=== PATIENT | female | born 1940 | race Caucasian/White ===

== ENCOUNTER 2017-05-01 10:14 | Inpatient (IN) | payer OTHER ==
[2017-05-01] MEDS: SOD CHLORIDE 0.9% 1,000 ML IV (11:22)
[2017-05-01 12:14] LABS: ADD MAN DIFF? NO
[2017-05-01 12:19] LABS: BASOPHILS % 0.5 % (0.0-2.0); EOSINOPHILS # 0.1 10^3/ul (0.0-0.5); EOSINOPHILS % 1.5 % (0.0-7.0); HEMATOCRIT 28.3 % (37.0-47.0); HEMOGLOBIN 8.6 g/dl (12.0-16.0); LYMPHOCYTES # 1.1 10^3/ul (0.8-2.9); LYMPHOCYTES % 27.7 % (15.0-51.0); MEAN CORPUSCULAR HEMOGLOBIN 26.5 pg (29.0-33.0); MEAN CORPUSCULAR HGB CONC 30.4 g/dl (32.0-37.0); MEAN CORPUSCULAR VOLUME 87.3 fl (82.0-101.0); MEAN PLATELET VOLUME 10.4 fl (7.4-10.4); MONOCYTE # 0.4 10^3/ul (0.3-0.9); MONOCYTES % 9.4 % (0.0-11.0); NEUTROPHIL # 2.4 10^3/ul (1.6-7.5); NEUTROPHILS % 60.6 % (39.0-77.0); PLATELET COUNT 184 10^3/UL (140-415); RED BLOOD COUNT 3.24 10^6/ul (4.20-5.40); RED CELL DISTRIBUTION WIDTH 20.3 % (11.5-14.5)
[2017-05-01 12:19] LABS: WHITE BLOOD COUNT 3.9 10^3/ul (4.8-10.8)
[2017-05-01 12:42] LABS: INR 1.05; PROTIME 13.8 Sec (11.9-14.9); PT RATIO 1.1
[2017-05-01 12:43] LABS: PARTIAL THROMBOPLASTIN TIME 31.1 Sec (25.0-35.0)
[2017-05-01 12:46] LABS: ALBUMIN/GLOBULIN RATIO 1.17; ANION GAP 13 (8-16)
[2017-05-01 12:56] LABS: ALANINE AMINOTRANSFERASE 54 IU/L (13-69); ALBUMIN 3.4 g/dl (3.3-4.9); ALKALINE PHOSPHATASE 121 IU/L (42-121); ASPARTATE AMINO TRANSFERASE 43 IU/L (15-46); BLOOD UREA NITROGEN 25 mg/dl (7-20); CALCIUM 8.9 mg/dl (8.4-10.2); CARBON DIOXIDE 28 mmol/L (21-31); CHLORIDE 106 mmol/L (97-110); CK INDEX 2.5; CK-MB 1.29 ng/ml (0.0-2.4); CREATINE KINASE 51 IU/L (23-200); CREATININE 1.14 mg/dl (0.44-1.00); GLUCOSE 94 mg/dl (70-220); POTASSIUM 4.4 mmol/L (3.5-5.1); SODIUM 143 mmol/L (135-144); TOTAL PROTEIN 6.3 g/dl (6.1-8.1)
[2017-05-01 13:27] LABS: ADD UMIC NO; UR ASCORBIC ACID NEGATIVE (NEGATIVE); UR BACTERIA FEW /HPF (NONE SEEN); UR BILIRUBIN (Dip) NEGATIVE (NEGATIVE); UR BLOOD (Dip) NEGATIVE (NEGATIVE); UR CLARITY SLIGHTLY CLOUDY (CLEAR); UR COLOR YELLOW (YELLOW); UR GLUCOSE (Dip) NEGATIVE (NEGATIVE); UR KETONES (Dip) NEGATIVE (NEGATIVE); UR LEUKOCYTE ESTERASE (Dip) NEGATIVE Leu/ul (NEGATIVE); UR NITRITE (Dip) NEGATIVE (NEGATIVE); UR RBC 0 /HPF (0-5); UR SPECIFIC GRAVITY (Dip) 1.011 (1.003-1.030); UR TOTAL PROTEIN (Dip) NEGATIVE (NEGATIVE); UR UROBILINOGEN (Dip) NEGATIVE (NEGATIVE); UR WBC 1 /HPF (0-5)
[2017-05-01 13:52] LABS: CANNABINOIDS Negative (NEGATIVE)
[2017-05-01 13:55] LABS: FREE THYROXINE INDEX (Calc) 2.67 ug/ml (0.65-3.89); T3 UPTAKE 40.4 % (23.5-40.5); T4 (THYROXINE) 6.6 ug/dl (5.5-11.0)
[2017-05-01] MEDS ORDERED: ACETAMINOPHEN 325 MG TAB PO (14:00)
[2017-05-01] MEDS ORDERED: ONDANSETRON 4 MG INJ IV ×2 (14:00→17:30)
[2017-05-01 14:07] LABS: AMPHETAMINE/METHAMPHETAMINE Negative (NEGATIVE); BARBITURATES Negative (NEGATIVE); BENZODIAZEPINES Negative (NEGATIVE); COCAINE Negative (NEGATIVE); OPIATES Positive (NEGATIVE)
[2017-05-01 14:34] LABS: B-TYPE NATRIURETIC PEPTIDE 3280 PG/ML (0-450)
[2017-05-01 15:00] LABS: ETHANOL < 10.0 mg/dl
[2017-05-01] MEDS ORDERED: GLUCOSE GEL 15 GRAM TUBE PO ×2 (18:00)
[2017-05-01] MEDS ORDERED: GLUCAGON 1 MG INJ IM (18:00)
[2017-05-01] MEDS ORDERED: DEXTROSE 50% 50 ML SYRINGE IV ×2 (18:00)
[2017-05-01] MEDS: INSULIN ASPART [NOVOLOG] 3 ML PEN SC ×2 (18:00→20:38)
[2017-05-01] MEDS ORDERED: GLUCOSE GEL 15 GRAM TUBE BUCCAL (18:00)
[2017-05-01] MEDS: FUROSEMIDE 40 MG INJ IV (18:40)
[2017-05-01] MEDS: DEXTROSE 5%-0.45% NACL 1,000 ML IV (18:41)
[2017-05-01 18:43] LABS: CREATINE KINASE 50 IU/L (23-200)
[2017-05-01 18:56] LABS: CK INDEX 2.4; CK-MB 1.18 ng/ml (0.0-2.4); TROPONIN-I 0.072 ng/ml (0.00-0.12)
[2017-05-01] MEDS: FAMOTIDINE 20 MG INJ IV (20:38)
[2017-05-01] MEDS: LORAZEPAM 2 MG INJ IV (21:26)
[2017-05-02 00:36] LABS: CREATINE KINASE 43 IU/L (23-200)
[2017-05-02 00:48] LABS: CK INDEX 2.5; CK-MB 1.09 ng/ml (0.0-2.4); TROPONIN-I 0.072 ng/ml (0.00-0.12)
[2017-05-02] MEDS: ACCU-CHEK XX (01:28)
[2017-05-02] MEDS: DEXTROSE 5%-0.45% NACL 1,000 ML IV ×2 (06:50→08:31)
[2017-05-02 08:12] LABS: ADD MAN DIFF? NO
[2017-05-02 08:15] LABS: BASOPHILS % 0.6 % (0.0-2.0); EOSINOPHILS # 0.1 10^3/ul (0.0-0.5); EOSINOPHILS % 2.2 % (0.0-7.0); HEMATOCRIT 27.3 % (37.0-47.0); HEMOGLOBIN 8.5 g/dl (12.0-16.0); LYMPHOCYTES # 0.8 10^3/ul (0.8-2.9); LYMPHOCYTES % 21.7 % (15.0-51.0); MEAN CORPUSCULAR HEMOGLOBIN 26.5 pg (29.0-33.0); MEAN CORPUSCULAR HGB CONC 31.1 g/dl (32.0-37.0); MEAN PLATELET VOLUME 10.8 fl (7.4-10.4); MONOCYTE # 0.5 10^3/ul (0.3-0.9); MONOCYTES % 13.4 % (0.0-11.0); NEUTROPHIL # 2.2 10^3/ul (1.6-7.5); NEUTROPHILS % 61.5 % (39.0-77.0); PLATELET COUNT 200 10^3/UL (140-415); RED BLOOD COUNT 3.21 10^6/ul (4.20-5.40); RED CELL DISTRIBUTION WIDTH 19.5 % (11.5-14.5)
[2017-05-02 08:15] LABS: WHITE BLOOD COUNT 3.6 10^3/ul (4.8-10.8)
[2017-05-02] MEDS: INSULIN ASPART [NOVOLOG] 3 ML PEN SC ×4 (08:29→21:00)
[2017-05-02 08:42] LABS: ALANINE AMINOTRANSFERASE 62 IU/L (13-69); ALBUMIN 3.3 g/dl (3.3-4.9); ALBUMIN/GLOBULIN RATIO 1.13; ALKALINE PHOSPHATASE 127 IU/L (42-121); ANION GAP 12 (8-16); ASPARTATE AMINO TRANSFERASE 41 IU/L (15-46); BILIRUBIN,INDIRECT 0.1 mg/dl (0-1.1); BILIRUBIN,TOTAL 0.1 mg/dl (0.2-1.3); BLOOD UREA NITROGEN 14 mg/dl (7-20); CALCIUM 8.5 mg/dl (8.4-10.2); CARBON DIOXIDE 32 mmol/L (21-31); CHLORIDE 103 mmol/L (97-110); CHOL/HDL RATIO 6.4 RATIO; CHOLESTEROL 181 mg/dl (100-200); CREATININE 0.79 mg/dl (0.44-1.00); GLUCOSE 121 mg/dl (70-220); HDL CHOLESTEROL 28 mg/dl (33-92); LDL CHOLESTEROL,CALCULATED 113 mg/dl; MAGNESIUM 1.4 mg/dl (1.7-2.5); POTASSIUM 3.3 mmol/L (3.5-5.1); SODIUM 144 mmol/L (135-144); TOTAL PROTEIN 6.2 g/dl (6.1-8.1); TRIGLYCERIDES 202 mg/dl (0-149)
[2017-05-02] MEDS: ASPIRIN 81 MG TAB PO (09:00)
[2017-05-02 09:06] LABS: THYROID STIMULATING HORMONE 0.662 MIU/L (0.465-4.680)
[2017-05-02] MEDS: FAMOTIDINE 20 MG INJ IV ×2 (09:12→20:59)
[2017-05-02] MEDS: ENOXAPARIN 30 MG/0.3 ML SYG SC (09:15)
[2017-05-02] MEDS: hydrALAzine 20 MG INJ IV ×3 (12:30→20:59)
[2017-05-02] MEDS ORDERED: POTASSIUM CHLORIDE (SR) 20 MEQ TAB PO (13:40)
[2017-05-02] MEDS: MAGNESIUM SULFATE 2 GM/50 ML 50 ML IVPB (14:25)
[2017-05-02] MEDS: POTASSIUM CHLORIDE 100 ML IVPB (16:13)
[2017-05-03] MEDS: ACCU-CHEK XX (03:00)
[2017-05-03] MEDS: hydrALAzine 20 MG INJ IV ×3 (03:48→20:16)
[2017-05-03 08:06] LABS: ADD MAN DIFF? NO
[2017-05-03 08:12] LABS: WHITE BLOOD COUNT 4.8 10^3/ul (4.8-10.8)
[2017-05-03 08:12] LABS: BASOPHILS % 0.4 % (0.0-2.0); EOSINOPHILS # 0.1 10^3/ul (0.0-0.5); EOSINOPHILS % 1.2 % (0.0-7.0); HEMATOCRIT 29.8 % (37.0-47.0); HEMOGLOBIN 9.4 g/dl (12.0-16.0); LYMPHOCYTES # 0.6 10^3/ul (0.8-2.9); LYMPHOCYTES % 12.4 % (15.0-51.0); MEAN CORPUSCULAR HEMOGLOBIN 26.3 pg (29.0-33.0); MEAN CORPUSCULAR HGB CONC 31.5 g/dl (32.0-37.0); MEAN CORPUSCULAR VOLUME 83.5 fl (82.0-101.0); MEAN PLATELET VOLUME 10.9 fl (7.4-10.4); MONOCYTE # 0.6 10^3/ul (0.3-0.9); MONOCYTES % 11.4 % (0.0-11.0); NEUTROPHIL # 3.6 10^3/ul (1.6-7.5); NEUTROPHILS % 74.4 % (39.0-77.0); PLATELET COUNT 225 10^3/UL (140-415); RED BLOOD COUNT 3.57 10^6/ul (4.20-5.40)
[2017-05-03] MEDS: ASPIRIN 81 MG TAB PO (08:13)
[2017-05-03 08:56] LABS: IRON 40 ug/dl (35-150)
[2017-05-03 08:57] LABS: ALANINE AMINOTRANSFERASE 54 IU/L (13-69); ALBUMIN 3.5 g/dl (3.3-4.9); ALBUMIN/GLOBULIN RATIO 1.25; ALKALINE PHOSPHATASE 129 IU/L (42-121); ANION GAP 15 (8-16); ASPARTATE AMINO TRANSFERASE 32 IU/L (15-46); BILIRUBIN,INDIRECT 0.1 mg/dl (0-1.1); BILIRUBIN,TOTAL 0.1 mg/dl (0.2-1.3); BLOOD UREA NITROGEN 7 mg/dl (7-20); CARBON DIOXIDE 29 mmol/L (21-31); CHLORIDE 102 mmol/L (97-110); CREATININE 0.63 mg/dl (0.44-1.00); GLUCOSE 173 mg/dl (70-220); POTASSIUM 3.6 mmol/L (3.5-5.1); SODIUM 142 mmol/L (135-144); TOTAL PROTEIN 6.3 g/dl (6.1-8.1)
[2017-05-03 09:01] LABS: FERRITIN 32.7 ng/ml (11.1-264.0)
[2017-05-03 09:05] LABS: % IRON SATURATION 12 % SAT (22-52); TOTAL IRON BINDING CAPACITY 340 ug/dl (241-421)
[2017-05-03] MEDS: FAMOTIDINE 20 MG INJ IV (09:08)
[2017-05-03] MEDS: ENOXAPARIN 30 MG/0.3 ML SYG SC (09:10)
[2017-05-03] MEDS: INSULIN ASPART [NOVOLOG] 3 ML PEN SC ×4 (09:11→20:29)
[2017-05-03] MEDS: DEXTROSE 5%-0.45% NACL 1,000 ML IV (09:11)
[2017-05-03] MEDS: hydrALAzine 20 MG INJ IM ×3 (09:30→22:51)
[2017-05-03] MEDS: CLONIDINE 0.1 MG/24 HR PATCH TRANSDERM (11:30)
[2017-05-03] MEDS ORDERED: FUROSEMIDE 20 MG INJ (17:02)
[2017-05-03] MEDS: FUROSEMIDE 20 MG INJ IV (17:05)
[2017-05-03] MEDS: SOD FERRIC GLUC COMPLX 125 MG in SOD CHLORIDE 0.9% 100 ML IVPB (17:05)
[2017-05-04] MEDS: ACCU-CHEK XX (02:00)
[2017-05-04] MEDS: hydrALAzine 20 MG INJ IM (06:15)
[2017-05-04] MEDS: INFLUENZA VIRUS VACCINE 0.5 ML (DISPENSING) IM* (08:45)
[2017-05-04] MEDS: ASPIRIN 81 MG TAB PO (08:45)
[2017-05-04] MEDS: INSULIN ASPART [NOVOLOG] 3 ML PEN SC ×4 (08:45→20:45)
[2017-05-04] MEDS: ENOXAPARIN 30 MG/0.3 ML SYG SC (09:00)
[2017-05-04 10:43] LABS: ABNORMAL IP MESSAGE 1; ADD MAN DIFF? NO; BASOPHILS % 0.4 % (0.0-2.0); EOSINOPHILS % 0.8 % (0.0-7.0); HEMATOCRIT 32.5 % (37.0-47.0); HEMOGLOBIN 10.4 g/dl (12.0-16.0); LYMPHOCYTES # 0.6 10^3/ul (0.8-2.9); LYMPHOCYTES % 11.9 % (15.0-51.0); MEAN CORPUSCULAR HEMOGLOBIN 26.2 pg (29.0-33.0); MEAN CORPUSCULAR VOLUME 81.9 fl (82.0-101.0); MEAN PLATELET VOLUME 10.7 fl (7.4-10.4); MONOCYTE # 0.4 10^3/ul (0.3-0.9); MONOCYTES % 8.7 % (0.0-11.0); NEUTROPHIL # 3.9 10^3/ul (1.6-7.5); NEUTROPHILS % 77.8 % (39.0-77.0); PLATELET COUNT 248 10^3/UL (140-415); RED BLOOD COUNT 3.97 10^6/ul (4.20-5.40); RED CELL DISTRIBUTION WIDTH 18.7 % (11.5-14.5)
[2017-05-04 10:46] LABS: POSITIVE DIFF @See below
[2017-05-04 11:10] LABS: ALBUMIN 3.8 g/dl (3.3-4.9); ALBUMIN/GLOBULIN RATIO 1.22; ALKALINE PHOSPHATASE 128 IU/L (42-121); ANION GAP 14 (8-16); ASPARTATE AMINO TRANSFERASE 28 IU/L (15-46); BILIRUBIN,INDIRECT 0.2 mg/dl (0-1.1); BILIRUBIN,TOTAL 0.2 mg/dl (0.2-1.3); BLOOD UREA NITROGEN 11 mg/dl (7-20); CALCIUM 8.9 mg/dl (8.4-10.2); CARBON DIOXIDE 31 mmol/L (21-31); CHLORIDE 100 mmol/L (97-110); CREATININE 0.68 mg/dl (0.44-1.00); GLUCOSE 159 mg/dl (70-220); POTASSIUM 3.4 mmol/L (3.5-5.1); SODIUM 142 mmol/L (135-144); TOTAL PROTEIN 6.9 g/dl (6.1-8.1)
[2017-05-04 11:27] LABS: ALANINE AMINOTRANSFERASE 39 IU/L (13-69)
[2017-05-04] MEDS ORDERED: PENDING SANTYL ORDER FOR WOUND CARE XX (12:00)
[2017-05-04] MEDS: POTASSIUM CHLORIDE 50 ML IVPB ×2 (12:30→17:33)
[2017-05-04] MEDS: ASPIRIN (EC) 81 MG TAB PO (13:05)
[2017-05-04] MEDS: SOD CHLORIDE 0.9% 100 ML (16:25)
[2017-05-04] MEDS: IOHEXOL 100 ML (16:25)
[2017-05-04] MEDS: SOD FERRIC GLUC COMPLX 125 MG in SOD CHLORIDE 0.9% 100 ML IVPB (17:00)
[2017-05-04] MEDS: hydrALAzine 20 MG INJ IV (17:35)
[2017-05-04] MEDS: ACETAMINOPHEN 325 MG TAB PO (17:57)
[2017-05-04] MEDS: ATORVASTATIN 80 MG TAB PO (20:46)
[2017-05-05] MEDS: ACCU-CHEK XX ×2 (02:00→22:05)
[2017-05-05] MEDS: hydrALAzine 20 MG INJ IV ×2 (07:43→16:37)
[2017-05-05] MEDS: INSULIN ASPART [NOVOLOG] 3 ML PEN SC ×4 (07:54→20:09)
[2017-05-05] MEDS: PANTOPRAZOLE (EC) 40 MG TAB PO (07:58)
[2017-05-05] MEDS: LEVOTHYROXINE 88 MCG TAB PO (07:58)
[2017-05-05] MEDS: METOPROLOL 25 MG TAB PO ×3 (08:07→20:08)
[2017-05-05] MEDS: CLOPIDOGREL 75 MG TAB PO (08:07)
[2017-05-05 08:15] LABS: ADD MAN DIFF? NO
[2017-05-05 08:17] LABS: BASOPHILS % 0.6 % (0.0-2.0); EOSINOPHILS # 0.1 10^3/ul (0.0-0.5); EOSINOPHILS % 1.3 % (0.0-7.0); HEMATOCRIT 34.5 % (37.0-47.0); HEMOGLOBIN 11.1 g/dl (12.0-16.0); LYMPHOCYTES # 0.8 10^3/ul (0.8-2.9); LYMPHOCYTES % 16.7 % (15.0-51.0); MEAN CORPUSCULAR HEMOGLOBIN 26.4 pg (29.0-33.0); MEAN CORPUSCULAR HGB CONC 32.2 g/dl (32.0-37.0); MEAN CORPUSCULAR VOLUME 81.9 fl (82.0-101.0); MEAN PLATELET VOLUME 10.9 fl (7.4-10.4); MONOCYTE # 0.5 10^3/ul (0.3-0.9); MONOCYTES % 10.4 % (0.0-11.0); NEUTROPHIL # 3.3 10^3/ul (1.6-7.5); NEUTROPHILS % 70.6 % (39.0-77.0); PLATELET COUNT 252 10^3/UL (140-415); RED BLOOD COUNT 4.21 10^6/ul (4.20-5.40); RED CELL DISTRIBUTION WIDTH 18.5 % (11.5-14.5)
[2017-05-05 08:17] LABS: WHITE BLOOD COUNT 4.7 10^3/ul (4.8-10.8)
[2017-05-05] MEDS: ENOXAPARIN 30 MG/0.3 ML SYG SC (08:18)
[2017-05-05] MEDS: ASPIRIN 81 MG TAB PO (08:21)
[2017-05-05] MEDS: ASPIRIN (EC) 81 MG TAB PO (08:21)
[2017-05-05 08:44] LABS: ANION GAP 18 (8-16); BLOOD UREA NITROGEN 12 mg/dl (7-20); CALCIUM 9.5 mg/dl (8.4-10.2); CARBON DIOXIDE 28 mmol/L (21-31); CHLORIDE 99 mmol/L (97-110); CREATININE 0.66 mg/dl (0.44-1.00); GLUCOSE 137 mg/dl (70-220); MAGNESIUM 1.4 mg/dl (1.7-2.5); POTASSIUM 3.6 mmol/L (3.5-5.1); SODIUM 141 mmol/L (135-144)
[2017-05-05] MEDS: VALSARTAN 160 MG TAB PO (10:04)
[2017-05-05] MEDS: SOD FERRIC GLUC COMPLX 125 MG in SOD CHLORIDE 0.9% 100 ML IVPB (16:38)
[2017-05-05] MEDS: MAGNESIUM SULFATE 3 GM in DEXTROSE 5% 100 ML IVPB (18:30)
[2017-05-05] MEDS: SERTRALINE 50 MG TAB PO (20:08)
[2017-05-05] MEDS: ATORVASTATIN 80 MG TAB PO (20:08)
[2017-05-05] MEDS: LORAZEPAM 2 MG INJ IV (22:05)
[2017-05-06] MEDS: LEVOTHYROXINE 88 MCG TAB PO (06:05)
[2017-05-06] MEDS: PANTOPRAZOLE (EC) 40 MG TAB PO (06:05)
[2017-05-06] MEDS: hydrALAzine 20 MG INJ IV (06:11)
[2017-05-06] MEDS: INSULIN ASPART [NOVOLOG] 3 ML PEN SC ×4 (08:19→21:41)
[2017-05-06] MEDS: ENOXAPARIN 30 MG/0.3 ML SYG SC (08:20)
[2017-05-06] MEDS: VALSARTAN 160 MG TAB PO ×3 (08:21→09:12)
[2017-05-06] MEDS: CLOPIDOGREL 75 MG TAB PO ×3 (08:21→09:12)
[2017-05-06] MEDS: ASPIRIN (EC) 81 MG TAB PO ×3 (08:21→09:13)
[2017-05-06] MEDS: METOPROLOL 25 MG TAB PO ×4 (08:21→20:30)
[2017-05-06] MEDS: ASPIRIN 81 MG TAB PO (08:22)
[2017-05-06 08:56] LABS: ADD MAN DIFF? NO
[2017-05-06 09:04] LABS: WHITE BLOOD COUNT 5.4 10^3/ul (4.8-10.8)
[2017-05-06 09:04] LABS: BASOPHILS % 0.6 % (0.0-2.0); EOSINOPHILS # 0.1 10^3/ul (0.0-0.5); EOSINOPHILS % 1.5 % (0.0-7.0); HEMATOCRIT 36.3 % (37.0-47.0); HEMOGLOBIN 11.8 g/dl (12.0-16.0); LYMPHOCYTES # 1.1 10^3/ul (0.8-2.9); LYMPHOCYTES % 20.6 % (15.0-51.0); MEAN CORPUSCULAR HEMOGLOBIN 26.5 pg (29.0-33.0); MEAN CORPUSCULAR HGB CONC 32.5 g/dl (32.0-37.0); MEAN CORPUSCULAR VOLUME 81.6 fl (82.0-101.0); MEAN PLATELET VOLUME 11.3 fl (7.4-10.4); MONOCYTE # 0.7 10^3/ul (0.3-0.9); MONOCYTES % 12.3 % (0.0-11.0); NEUTROPHIL # 3.5 10^3/ul (1.6-7.5); NEUTROPHILS % 64.8 % (39.0-77.0); PLATELET COUNT 291 10^3/UL (140-415); RED BLOOD COUNT 4.45 10^6/ul (4.20-5.40); RED CELL DISTRIBUTION WIDTH 18.5 % (11.5-14.5)
[2017-05-06 09:34] LABS: ANION GAP 16 (8-16); BLOOD UREA NITROGEN 13 mg/dl (7-20); CARBON DIOXIDE 29 mmol/L (21-31); CHLORIDE 100 mmol/L (97-110); CREATININE 0.79 mg/dl (0.44-1.00); GLUCOSE 136 mg/dl (70-220); POTASSIUM 3.6 mmol/L (3.5-5.1); SODIUM 141 mmol/L (135-144)
[2017-05-06 09:36] LABS: CALCIUM 9.3 mg/dl (8.4-10.2)
[2017-05-06 09:43] LABS: MAGNESIUM 1.9 mg/dl (1.7-2.5)
[2017-05-06] MEDS: AMLODIPINE 5 MG TAB PO (12:35)
[2017-05-06 19:35] LABS: AMMONIA < 9 umol/l (9-30)
[2017-05-06] MEDS: ATORVASTATIN 80 MG TAB PO (20:29)
[2017-05-06] MEDS: SERTRALINE 50 MG TAB PO (20:30)
[2017-05-06] MEDS: LORAZEPAM 2 MG INJ IV (20:43)
[2017-05-07] MEDS: hydrALAzine 20 MG INJ IV (00:49)
[2017-05-07] MEDS: LORAZEPAM 2 MG INJ IV (00:49)
[2017-05-07] MEDS: ACCU-CHEK XX (02:13)
[2017-05-07] MEDS: PANTOPRAZOLE (EC) 40 MG TAB PO (06:13)
[2017-05-07] MEDS: LEVOTHYROXINE 88 MCG TAB PO (06:13)
[2017-05-07] MEDS: INSULIN ASPART [NOVOLOG] 3 ML PEN SC ×4 (08:00→21:48)
[2017-05-07 08:45] LABS: ADD MAN DIFF? NO
[2017-05-07 08:50] LABS: WHITE BLOOD COUNT 4.6 10^3/ul (4.8-10.8)
[2017-05-07 08:50] LABS: BASOPHILS % 0.9 % (0.0-2.0); EOSINOPHILS # 0.1 10^3/ul (0.0-0.5); HEMATOCRIT 35.8 % (37.0-47.0); HEMOGLOBIN 11.6 g/dl (12.0-16.0); LYMPHOCYTES # 1.2 10^3/ul (0.8-2.9); LYMPHOCYTES % 25.7 % (15.0-51.0); MEAN CORPUSCULAR HEMOGLOBIN 26.6 pg (29.0-33.0); MEAN CORPUSCULAR HGB CONC 32.4 g/dl (32.0-37.0); MEAN CORPUSCULAR VOLUME 82.1 fl (82.0-101.0); MEAN PLATELET VOLUME 10.9 fl (7.4-10.4); MONOCYTE # 0.5 10^3/ul (0.3-0.9); MONOCYTES % 11.7 % (0.0-11.0); NEUTROPHIL # 2.7 10^3/ul (1.6-7.5); NEUTROPHILS % 59.5 % (39.0-77.0); PLATELET COUNT 268 10^3/UL (140-415); RED BLOOD COUNT 4.36 10^6/ul (4.20-5.40); RED CELL DISTRIBUTION WIDTH 18.4 % (11.5-14.5)
[2017-05-07] MEDS: ASPIRIN 81 MG TAB PO (09:00)
[2017-05-07 09:22] LABS: ANION GAP 17 (8-16); BLOOD UREA NITROGEN 14 mg/dl (7-20); CALCIUM 9.3 mg/dl (8.4-10.2); CARBON DIOXIDE 27 mmol/L (21-31); CHLORIDE 102 mmol/L (97-110); CREATININE 0.83 mg/dl (0.44-1.00); GLUCOSE 143 mg/dl (70-220); POTASSIUM 3.9 mmol/L (3.5-5.1); SODIUM 142 mmol/L (135-144)
[2017-05-07 09:23] LABS: PHOSPHORUS 3.8 mg/dl (2.5-4.9)
[2017-05-07 09:23] LABS: MAGNESIUM 1.6 mg/dl (1.7-2.5)
[2017-05-07] MEDS: CLOPIDOGREL 75 MG TAB PO (09:39)
[2017-05-07] MEDS: ASPIRIN (EC) 81 MG TAB PO (09:39)
[2017-05-07] MEDS: VALSARTAN 160 MG TAB PO (09:40)
[2017-05-07] MEDS: METOPROLOL 25 MG TAB PO ×2 (09:41→20:19)
[2017-05-07] MEDS: AMLODIPINE 5 MG TAB PO (09:41)
[2017-05-07] MEDS: ENOXAPARIN 30 MG/0.3 ML SYG SC (09:42)
[2017-05-07 14:35] LABS: FOLATE > 20.0 ng/ml (2.8-20.0)
[2017-05-07] MEDS: MAGNESIUM OXIDE 400 MG TAB PO ×2 (14:56→20:19)
[2017-05-07] MEDS: ATORVASTATIN 80 MG TAB PO (20:17)
[2017-05-07] MEDS: SERTRALINE 50 MG TAB PO (20:19)
[2017-05-07 21:58] LABS: RAPID PLASMA REAGIN NONREACTIVE (NR)
[2017-05-08] MEDS: ACCU-CHEK XX (02:00)
[2017-05-08] MEDS: LEVOTHYROXINE 88 MCG TAB PO (06:39)
[2017-05-08] MEDS: PANTOPRAZOLE (EC) 40 MG TAB PO (06:39)
[2017-05-08] MEDS: MAGNESIUM OXIDE 400 MG TAB PO (08:17)
[2017-05-08] MEDS: CLOPIDOGREL 75 MG TAB PO (08:17)
[2017-05-08] MEDS: ASPIRIN (EC) 81 MG TAB PO (08:17)
[2017-05-08] MEDS: VALSARTAN 160 MG TAB PO (08:19)
[2017-05-08] MEDS: METOPROLOL 25 MG TAB PO (08:19)
[2017-05-08] MEDS: AMLODIPINE 5 MG TAB PO (08:20)
[2017-05-08] MEDS: INSULIN ASPART [NOVOLOG] 3 ML PEN SC (08:22)
[2017-05-08] MEDS: ENOXAPARIN 30 MG/0.3 ML SYG SC (08:25)
[2017-05-08] MEDS: ASPIRIN 81 MG TAB PO (09:00)
== END 2017-05-08 11:30 | disposition home health service (06) | DRG 92 ==
LOC: MS4 05-02 15:53 → E/R 10:14 → MS4 13:49
DX: G92 Toxic encephalopathy (principal); N17.9 Acute kidney failure, unspecified; E86.0 Dehydration; I11.0 Hypertensive heart disease with heart failure; I50.9 Heart failure, unspecified; G30.9 Alzheimer's disease, unspecified; E11.9 Type 2 diabetes mellitus without complications; D50.9 Iron deficiency anemia, unspecified; F32.9 Major depressive disorder, single episode, unspecified; F02.80 Dementia in other diseases classified elsewhere, unspecified severity, without behavioral disturbance, psychotic disturbance, mood disturbance, and anxiety; I16.1 Hypertensive emergency; E03.9 Hypothyroidism, unspecified; F17.210 Nicotine dependence, cigarettes, uncomplicated; I65.22 Occlusion and stenosis of left carotid artery; I25.10 Atherosclerotic heart disease of native coronary artery without angina pectoris; J45.909 Unspecified asthma, uncomplicated; K21.9 Gastro-esophageal reflux disease without esophagitis; R91.8 Other nonspecific abnormal finding of lung field; Z86.73 Personal history of transient ischemic attack (TIA), and cerebral infarction without residual deficits; Z79.84 Long term (current) use of oral hypoglycemic drugs; Z79.02 Long term (current) use of antithrombotics/antiplatelets; Z79.82 Long term (current) use of aspirin
CPT/HCPCS: 36415; 70450; 70498; 70551; 71045; 71260; 80048; 80053; 80061; 80306; 80307; 81001; 81003; 82140; 82550; 82553; 82607; 82728; 82746; 82962; 83036; 83540; 83735; 83880; 84100; 84436; 84443; 84479; 84484; 85025; 85610; 85651; 85730; 86592; 87040; 87086; 92526; 92610; 93005; 93306; 93880; 95819; 96374; 96375; 97110; 97162; 97530; 99285-25; J1940